=== PATIENT | female | born 1945 | race Caucasian/White ===

== ENCOUNTER → 2017-07-03 | Outpatient (CLI) | payer MEDICARE, OTHER ==
[~2017-07-03] MED LIST: ALPRAZOLAM; AMBIEN 5 MG TABL5 M1; AMBIEN 5 MG TABL5 M1 PO; AMITRIPTYLINE H10 M1 PO; AMITRIPTYLINE H25 M2 PO; APAP500 PO; ATENOLOL 100MG100 MG PO; ATENOLOL 50 MG50 M1 PO; B12INJ; B12INJ SUBQ; BUSPAR 5 MG TABL5 M1 PO; BUSPIRONE HCL10 MG PO; BUTRANS1 EAC1 TD; CALCIUM PO; CIPRO500 MG PO; CYMBALTA20 MG; CYMBALTA60 MG PO; DURAGESIC1 EAC1 INTRADERM; FLEXERIL PO; HYDROCODONE-AP1 EAC6 PO; HYDROCODONE-APA1 TA1 PO; LEVOTHYROXIN0.125 M1 PO; LIORESAL 10 MG10 MG PO; MEDROLDOSEPACK PO; MOBIC15 MG PO; MOBIC7.5 M1 PO; NEURONTIN 300300 M1 PO; NEURONTIN300 MG PO; NEURONTIN600 MG PO; NORCO 10-325 T1 EACH PO; NORCO 5-325 TA1 EACH PO; OXYCODONE-APAP1 EAC6; PERCOCET 10-321 EACH PO; PERCOCET 5-3251 EACH PO; PERCOCET 7.5-31 EACH PO; POTASSIUM20 PO; PROAIR HFA8.5 GM INH; PROZAC20 MG PO; PROZAC40 MG; REMERON 30 MG T30 M1 PO; RESTORIL; RESTORIL15 MG PO; RESTORIL30 MG PO; STOOL SOFTENER1 EACH PO; SYNTHROID PO; TRAMADOL 50 MG50 MG PO; TRANSPORT CHAI1 EACH MC; ULTRA-LIGHT RO1 EACH MC; XANAX 0.25 MG0.25 MG PO; XANAX 0.5 MG0.5 MG PO; ZANAFLEX4 MG PO; ZOLOFT100 MG PO
--- NOTE | 2017-07-08 08:02 | PAINCON ---
[facility] [address] [place] [address] PAIN MANAGEMENT CONSULTATION Name: YOSVANY OSUNA Room: [facility] Ted#: [id number] Admission: 07/03/17 Attend Phys: Brenda Dai Discharge: Date of : 49 Report #: [id number] THIS REPORT FOR: //name// CC: Evangelina Marquez HISTORY OF PRESENT ILLNESS: The patient is a 72-year-old female last seen in pain clinic on 11/21/2016. She returns to pain clinic today. It has been greater than 6 months since her last visit. She has used hydrocodone 5/325 very infrequently. She does continue tizanidine 4 mg 1-2 a day for spasm, Cymbalta 300 mg 1 in the morning and 2 at night. He returns to the pain clinic today noting that she fell 3-1/2 weeks ago and broke her right wrist. She has had 3 falls in 6 months. She states she has no knowledge of falling, states she does not have pain. She does not "trip." Her leg does and "give out." She is unaware of actual falling, though she denies loss of consciousness (? ). Has no postictal period after the fall. This is very concerning for perhaps some cardiac arrhythmia. I can see no other source for these falls. She denies any change in medications or antecedent prodromal type sensations. She does have a new primary physician, Dr. Georges with the partner's in primary care clinic. She notes following her last fall she was seen in the ER. They did put a wrist splint on her, but did not apparently evaluate further the etiology of the falls. She notes she had had hernia surgery in May, is feeling much better overall. Some ongoing back pain that she rates at 7 on a VAS. PHYSICAL EXAMINATION: Shows 5 feet 4 inches, 140 pounds female, BMI is 24 kilograms per meter squared. Blood pressure 120/75, pulse 96, respirations 16, room air saturation 90%. GENERAL: She is alert and oriented to person, place and time, judged to be a reasonable historian. Cervical range of motion is good. Extraocular muscles are intact. There is no nystagmus. Lateral gaze deviation. She is wearing a splint on the right wrist, some subjective pain in the left shoulder, the range of motion is adequate, diffuse tenderness across the lower back. Gait is tandem. Lower extremity strength is preserved. ASSESSMENT: 1. Symptomatic axial back pain. 2. Lumbar radiculopathy by history. 3. Status post multiple falls. Again, 3 falls in the last 6 months. Even prior to that when I saw her greater than 6 months ago, 08:20-20:17, she had had a fall with a fracture of left clavicle and C7-T1 [place] [address] PAIN MANAGEMENT CONSULTATION Name: YOSVANY OSUNA Room: [facility] [place] Jean#: [id number] Admission: 07/03/17 Attend Phys: Brenda Dai Discharge: Date of : 49 Report #: [id number] RECOMMENDATION: 1. Strongly recommend referral to Cardiology for further workup. I will defer to her primary treating physician in this regard. 2. Continue tizanidine 4 mg 1-2 as needed for spasm, limit 60 tablets with 2 refills. 3. Continue gabapentin 300 mg 1 in the morning, 2 at night, 90 tablets with 5 refills. 4. I have taken the liberty of writing for a short course of hydrocodone 5/325 one tablet 3 times a day, limit 45 tablets. Follow up simply as needed basis. She does not warrant daily opiate analgesics. Strongly recommend followup for workup regarding the frequent falls. <ELECTRONICALLY SIGNED> By: Salvador Marquez DO 07/08/17 0802 1435 1743Salvador Marquez DO /nt
== END ==
LOC: M.PC 01:15
DX: M54.16 Radiculopathy, lumbar region (principal); Z91.81 History of falling

== ENCOUNTER 2018-12-26 06:08 | Inpatient (IN) | payer MEDICARE, OTHER ==
[~2018-12-26] VITALS: Ht 162.6 cm; Wt 61.2 kg
[~2018-12-26 06:08] MED LIST changes: +FOSAMAX 70 MG T70 MG PO; +MELATONIN10 M2 PO; +VITAMIN B125000 MCG PO
[2018-12-26 06:49] LABS: HEMATOCRIT 35.1 % (37.0-47.0); HEMOGLOBIN 11.9 gm/dL (12.0-15.0); MCH 31.2 pg (26.0-34.0); MCHC 33.7 g/dL (28.0-37.0); MCV 92.6 fL (80.0-100.0); MPV 8.9 fl. (7.2-11.1); RBC 3.8 mil/uL (4.20-5.00); RDW-CV 14.5 % (10.5-14.5); WBC 3.6 thou/uL (4.0-11.0)
[2018-12-26 07:21] LABS: CALCIUM 8.6 mg/dL (8.5-10.1); CREATININE 0.6 mg/dL (0.6-1.3); POTASSIUM 3.4 mmol/L (3.5-5.1)
[2018-12-26 07:26] LABS: ALBUMIN 3.5 g/dL (3.4-5.0); TOTAL BILIRUBIN 0.3 mg/dL (<0.1-1.0); TOTAL PROTEIN 6.8 g/dL (6.4-8.2)
--- NOTE | 2018-12-26 10:09 | EKG ---
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
[2018-12-26 12:20] VITALS: BP 126/70
[2018-12-26 17:19] VITALS: BP 109/63
--- NOTE | 2018-12-26 18:50 | NUR ---
PATIENT ARRIVED TO UNIT AT 1700. ALERT AND ORIENTED X4. VSS ON 2 LITERS. NO COMPLAINTS OF PAIN, SOA, OR NAUSEA. FLUIDS INFUSED ORDERED. PATIENT COMPLAINING OF ROOM BEING TOO HOT AND UPSET THAT SOMEONE DID NOT COME DOWN IMMEDICATELY TO ADJUST HER THERMASTAT IN THE ROOM. I EXPLAINED TO HER THAT I HAD THE REFRACTORY TECHNICIAN PUT IN THE WORK ORDER FOR MAINTANENCE TO TURN THE AIR DOWN AND I BROUGHT A FAN TO THE PATIENT. FALL PRECAUTIONS IN PLACE. CALL LIGHT WITHIN REACH. HOURLY ROUNDS COMPLETED. WILL CONTINUE TO MONITOR.
[2018-12-26 21:00] VITALS: BP 104/62
[2018-12-27] VITALS: BP 99/66
[2018-12-27 02:04] LABS: HEMATOCRIT 28.6 % (37.0-47.0)
[2018-12-27 02:07] LABS: HEMOGLOBIN 9.7 gm/dL (12.0-15.0)
[2018-12-27 04:00] VITALS: BP 105/59
--- NOTE | 2018-12-27 05:49 | NUR ---
PT ALERT AND ORIENTED. [facility] CATH APPLIED FOR RETENTION. MEDS GIVEN ORDERED. PAIN MANAGED WITH OXY IR. LEG ELEVATED ON PILLOW PER PT REQUEST. DRESSING TO LEFT LEG C/D/I. FLUIDS RUNNING ORDERED. HOURLY ROUNDING COMPLETED. WILL CONTINUE TO MONITOR.
[2018-12-27 08:00] VITALS: BP 120/69
[2018-12-27 10:42] LABS: HEMATOCRIT 30.8 % (37.0-47.0); HEMOGLOBIN 10.4 gm/dL (12.0-15.0); MCH 31.2 pg (26.0-34.0); MCHC 33.6 g/dL (28.0-37.0); MCV 92.9 fL (80.0-100.0); MPV 9.2 fl. (7.2-11.1); RBC 3.32 mil/uL (4.20-5.00); RDW-CV 14.1 % (10.5-14.5)
[2018-12-27 11:02] LABS: CALCIUM 8.5 mg/dL (8.5-10.1); CREATININE 0.7 mg/dL (0.6-1.3); POTASSIUM 3.6 mmol/L (3.5-5.1)
--- NOTE | 2018-12-27 16:20 | NUR ---
MET WITH PT TO DISCUSS HOME SITUATION/DC PLANNING. PT LIVES WITH SPOUSE, PLANS TO RETURN HOME AT DC AND WOULD LIKE HH. COULDN'T REMEMBER NAME OF HH AGENCY SHE'S HAD IN THE PAST. WILL CHECK OLD RECORD. PT STATED THAT SHE HAS A BSC. IS NWB, THERAPY WORKED WITH PT ON A KNEE SCOOTER AND RECOMMENDED PT HAVE ONE. ATTEMPTED TO LOCATE ONE THRU A DME CO TODAY BUT UNABLE TO FIND ONE. THEY ARE AVAILABLE TO RENT BUT THOSE STORES ARE NOT OPEN ON WEEKENDS. WILL NOT BE ABLE TO ARRANGE UNTIL SATURDAY. CM TO FOLLOW
[2018-12-27] MEDS ORDERED: AMBIEN 5 MG TABL5 M1 PO (17:10)
--- NOTE | 2018-12-27 18:10 | NUR ---
ASSUMED CARE OF PATIENT AT APPROX 0730. ALERT AND ORIENTED X4. ASSESSMENT COMPLETED AND CHARTED. VSS ON ROOM AIR. COMPLAINTS OF PAIN MANAGED WITH ORAL AND IV MEDICATIONS. MUSCLE SPASMS ARE CAUSING THE PATIENT THE MOST PAIN AND ATTEMPTED TO MANAGE WITH FLEXERIL WITH LITTLE SUCCESS. PAGED THE [place] DR AND WAITING FOR A CALL BACK. PATIENT HAS BEEN DOING WELL GETTING UP WITH THERAPIES TODAY. BULKY DRESSING TO LEFT LOWER EXTREMITY, PULSES AND CAP REFILL EQUAL ON BILAT LOWER EXTREMITIES. PATIENT HAS FEELING AND CAN WILL TOES ON SURGICAL FOOT. FALL PRECAUTIONS IN PLACE. CALL LIGHT WITHIN REACH. HOURLY ROUNDS COMPLETED. WILL CONTINUE TO MONITOR.
[2018-12-27 20:23] VITALS: BP 141/75
[2018-12-28 04:00] VITALS: BP 104/60
[2018-12-28 04:38] LABS: HEMATOCRIT 27.7 % (37.0-47.0); HEMOGLOBIN 9.5 gm/dL (12.0-15.0)
--- NOTE | 2018-12-28 04:53 | NUR ---
PATIENT HAS REMAINED ALERT AND ORIENTED X 4 THROUGHOUT THE SHIFT AND RESTING AT INTERVALS ON HOURLY ROUNDS. BULKY DRESSING RLE CLEAN AND DRY-ELEVATED ON TWO PILLOWS. SENSATION/CIRCULATION WITHIN NORMAL LIMITS AND ABLE TO WIGGLE TOES. VITAL SIGNS STABLE. INTAKE WITHOUT NAUSEA. ADEQUATE URINE OUTPUT PER [facility] CATHETER. PAIN MANAGEMENT CONTINUES TO BE A CHALLANGE. HAS REPORTED SOME OVERALL IMPROVEMENT. VITAL SIGNS STABLE. CONTINUE TO MONITOR.
[2018-12-28 15:12] VITALS: BP 92/56
--- NOTE | 2018-12-28 19:51 | NUR ---
ASSUMED CARE OF PATIENT AT APPROX 0730. ALERT AND ORIENTED X4. ASSESSMENT COMPLETED AND CHARTED. VSS ON ROOM AIR. PAIN MANAGED WITH ORAL MEDICATIONS. MUSCLE SPASMS ARE UNDER CONTROL AND HER PAIN LEVEL HAS GREATLY DECREASED TODAY. BULKY DRESSING TO LEFT LOWER EXTREMITY; CLEAN, DRY, INTACT. PATIENT UP STAND BY ASSIST, USING KNEE WALKER/SCOOTER. PATIENT UP IN THE CHAIR AND DRESSED TODAY. WORKED WELL WITH THERAPIES AND PROGRESSING TOWARD GOALS. NO OTHER COMPLAINTS THIS SHIFT. HOURLY ROUNDS COMPLETED. CALL LIGHT WITHIN REACH. WILL CONTINUE TO MONITOR.
[2018-12-28 21:16] VITALS: BP 99/63
[2018-12-29 04:00] VITALS: BP 101/55
[2018-12-29 05:00] LABS: URINE BILIRUBIN NEGATIVE (Negative); URINE BLOOD 2+ (Negative); URINE CLARITY CLEAR; URINE COLOR YELLOW; URINE GLUCOSE-RANDOM NEGATIVE (Negative); URINE KETONES NEGATIVE (Negative); URINE LEUKOCYTES-REFLEX 1+ (Negative); URINE NITRITE-REFLEX NEGATIVE (Negative); URINE PROTEIN NEGATIVE (Negative); URINE SPECIFIC GRAVITY 1.025 (1.005-1.030); URINE UROBILINOGEN 0.2 E.U./dl (0.2-1.0)
--- NOTE | 2018-12-29 05:22 | NUR ---
PT SLEPT WELL AFTER RECEIVING SLEEPING MEDS UNTIL ABOUT 0400. SCHEDULED AND PRN PO MEDS GIVEN WITH FAIR RELIEF. UA SENT TO LAB. NO BLOOD DRAW THIS MORNING.RFA SL. ROOM AIR. BULKY KASH WRAP DRSG CDI TO LLE, TOES PINK AND WARM. AOX4, ABLE TO USE CALL LITE AND MAKE NEEDS KNOWN. VSS. HOPEFUL FOR DISCHARGE HOME WITH HOME HEALTH AND SCOOTER WALKER TODAY.
[2018-12-29 05:43] LABS: CASTS None Seen /LPF (None Seen); SQUAMOUS 4-10 Moderate /LPF (0-3)
[2018-12-29 05:44] LABS: URINE RBC 3-10 Few /HPF (0-2)
[2018-12-29 05:45] LABS: CRYSTALS None Seen /LPF (None Seen)
[2018-12-29 08:00] VITALS: BP 90/50
[2018-12-29] MEDS ORDERED: ASA5UEC PO (10:12)
[2018-12-29] MEDS ORDERED: TRAMADOL 50 MG50 MG PO (10:12)
[2018-12-29] MEDS ORDERED: FLOMAX0.4 MG PO ×2 (10:12→13:27)
[2018-12-29] MEDS ORDERED: LIDOPATCH1 EACH TOP (10:12)
[2018-12-29] MEDS ORDERED: OXYCODONE HCL 55 MG PO (10:12)
[2018-12-29] MEDS ORDERED: CYCLOBENZAPRINE10 MG PO (10:12)
[2018-12-29 12:43] VITALS: BP 90/50
--- NOTE | 2018-12-29 13:45 | NUR ---
SPOKE WITH PT.ABOUT KNEE SCOOTERS. MEDICARE DOES NOT COVER KNEE SCOOTERS. GAVE PRICES TO RENT AND OR PURCHASE FROM [facility] [place]. SHE CALLED HER TO DISCUSS. SHE CAME OUT TO NURSES STATION AND SAID BRENDA TOLD HER THAT THEIR NEIGHBOR GAVE THEM ONE THEY HAD. DISCUSSED HH WITH HER. SHE CANNOT REMEMBER NAME OF AGENCY USED IN PAST. GAVE HER A LIST. SHE WILL LOOOK OVER AND MAKE A DECISION. CM WILL CHECK BACK WITH HER SHORTLY.
--- NOTE | 2019-01-02 14:10 | OP ---
[address] [address] OPERATIVE REPORT Name: YOSVANY OSUNA Room: [address] ..#: [id number] Admission: 12/27/18 Attend Phys: Brenda Edwards Discharge: 12/29/18 Date of : 49 Report #: [id number] THIS REPORT FOR: //name// CC: Bethany Garcia DATE OF SERVICE: 12/26/2018 PREOPERATIVE DIAGNOSIS: Left mid foot posttraumatic arthritis. POSTOPERATIVE DIAGNOSIS: Left mid foot posttraumatic arthritis. PROCEDURES: 1. Left foot medial column arthrodesis. 2. Left second transmetatarsal arthrodesis. 3. Left third transmetatarsal arthrodesis. 4. Intraoperative physician-guided fluoroscopy less than 2 hours. SURGEON: Bethany Hayward DO OBGYN SPECIALIST: Jersey Nichols DO ANESTHESIA: General and nerve block by Anesthesia. ESTIMATED BLOOD LOSS: 50 mL. SPECIMENS: None. DRAINS: None. COMPLICATIONS: None. CONDITION: Stable. DISPOSITION: PACU to Med/Surg. ANTIBIOTICS: 2 grams of Ancef IV preoperatively. TOURNIQUET: 140 minutes at 250 mmHg. IMPLANTS: Arthrex medial column arthrodesis plate, nitinol staple x 2, Demineralized Bone Matrix AlloSync. INDICATIONS FOR PROCEDURE: The patient is a very pleasant 73-year-old female, who has had ongoing left foot pain for the last several years. She had [facility] [address] [place] [address] OPERATIVE REPORT Name: YOSVANY OSUNA Room: [address] M.R.#: [id number] Admission: 12/27/18 Attend Phys: Brenda Edwards Discharge: 12/29/18 Date of : 49 Report #: [id number] sustained an injury to her left mid foot approximately 3 years ago. Her x-rays did show evidence of an old Lisfranc type injury with widening at the Lisfranc joint. She had developed significant arthritic change to the first, second and third TMT joints with forefoot abduction. She was having significant pain and debility. She had failed conservative therapies with anti-inflammatories, shoewear modification, activity modification, and injections. Despite these measures, she continues to have significant left foot pain. Therefore, I did recommend a left foot corrective osteotomy with first, second and third TMT joint fusions. The benefits, risks, complications and alternatives to this procedure were discussed with the patient in detail. These include but are not limited to bleeding, surgical site infection, neurovascular compromise, malunion, nonunion, hardware failure, continued pain, need for further surgery, arthritis of the adjacent joints, DVT, PE as well as the inherent risks of anesthesia. The patient understands these risks and is agreeable to proceed. Consent was signed in the preoperative holding area on the chart at the time of surgery. Operative site was marked. DESCRIPTION OF PROCEDURE: The patient was brought to the operating room and placed supine on the operating table. She was administered general anesthetic. A well-padded tourniquet was placed to the proximal portion of the left thigh. Left lower extremity was then sterilely prepped with chlorhexidine scrub, alcohol rinse and ChloraPrep x 2. She was then draped freely in the usual fashion. A timeout was performed confirming correct patient, site, procedure. Surgical site markings were identified and all in the room agreed and procedure began with exsanguination of the left lower extremity and inflation of the tourniquet to 250 mmHg. Next, a standard medial incision was made just medial to the tibialis anterior tendon. This was carried through skin and subcutaneous tissues. Hemostasis was achieved with electrocautery. This was carried to the level of the first TMT joint as well as the navicular cuneiform joint. The first TMT joint was fully exposed with subperiosteal dissection and we dissected over the top with care to protect the neurovascular bundle to the second TMT joint. After full exposure of the first and second TMT joints, we then turned our attention to the lateral aspect. A second incision was made along the medial border of the third metatarsal giving us approximately 4 cm skin bridge. This was carried through the skin and subcutaneous tissues. Hemostasis achieved with electrocautery. Dissection was carried down to the level of the second and third TMT joints. We then connected the two incisions in subperiosteal fashion and we were freely able to localize the first, second and third TMT joints. We freely mobilize the first, second and third TMT joints and at this time, it was noted that we were not getting the adequate correction of the mid foot that was needed. Therefore, the dissection was carried up to the level of the navicular cuneiform joints and the decision was made to place a medial column arthrodesis plate and to primarily use the medial column up to the navicular bone. We prepared all joint surfaces, first TMT, second TMT, the inner cuneiform joints as well as the navicular cuneiform joints by denuding all cartilage that remained. We then exposed the subchondral plate with a [place] [address] OPERATIVE REPORT Name: YOSVANY OSUNA Room: [facility] [facility].#: [id number] Admission: 12/27/18 Attend Phys: Brenda Edwards Discharge: 12/29/18 Date of : 49 Report #: [id number] small K-wire was utilized to fenestrate the joint surfaces and marrow was released. We then performed provisional reduction of the medial column and this was held into place with two large K wires. X-rays confirmed appropriate reduction of the medial column and overall improved foot alignment. An appropriate size plate was chosen and held into place with BB tacks x 2. X-rays confirmed appropriate positioning of the plate. We then drilled, measured and filled the proximal 4 holes in the plate with appropriate length of 3.5 mm nonlocking screws. The first two were placed across the navicular, the second two were placed across the three cuneiform joints. We then placed 2 more locking screws again across the cuneiform and into the second metatarsal. We then secured this distally on the first metatarsal with appropriate length of 3.5 mm cortical locking screws. At this time, we were noted to have appropriate reduction of the medial column. We then manually reduced the 2nd and 3rd tarsometatarsal joints and utilizing the appropriate drill bit. Two nitinol carmen were placed to cross the joint in the appropriate position and malleted into place appropriately, giving us excellent compression across the second and third TMT joints with adequate foot reduction. We then utilized approximately 7 mL of demineralized bone matrix. These were placed into the joint spaces and impacted appropriately. We at this time took some final x-rays. This confirmed appropriate mid foot position as well as hardware placement throughout. We then irrigated the wounds with normal saline. Tourniquet was let down at approximately 140 minutes and hemostasis achieved with electrocautery. We then began closure. The deep tissues were closed with 0 Vicryl suture, subcutaneous tissue closed with 2-0 Vicryl suture and skin reapproximated with 3-0 nylon. The wounds were then dressed with Xeroform, 4 x 4s, ABD, soft roll and a well-padded posterior plaster splint was applied. The patient tolerated the procedure well without complications, was transferred to PACU in stable condition. All needle and sponge counts were correct x 2 and I was present throughout the entirety of the case. <ELECTRONICALLY SIGNED> By: Bethany Hayward DO 01/02/19 1410 1618 1911Angthad Hayward DO /nt
== END 2018-12-29 15:00 | disposition home health service (06) | DRG 504 ==
LOC: M.SUR 06:08 → M.TBA 16:03 → M.ORTHSURG 17:02
PROVIDERS: Internal Medicine; Orthopaedic Surgery; ADMIT Internal Medicine
PROC: 0SGL0KZ Fusion of Left Tarsometatarsal Joint with Nonautologous Tissue Substitute, Open Approach (ICD-10-PCS; principal; 2018-12-26)
PROC: 0SGL04Z Fusion of Left Tarsometatarsal Joint with Internal Fixation Device, Open Approach (ICD-10-PCS; principal; 2018-12-26)
DX: M19.172 Post-traumatic osteoarthritis, left ankle and foot (principal); R71.0 Precipitous drop in hematocrit; E03.9 Hypothyroidism, unspecified; Z96.643 Presence of artificial hip joint, bilateral; Z96.651 Presence of right artificial knee joint; E04.1 Nontoxic single thyroid nodule; R33.9 Retention of urine, unspecified; Z79.899 Other long term (current) drug therapy; Z90.710 Acquired absence of both cervix and uterus; Z98.84 Bariatric surgery status; Z85.3 Personal history of malignant neoplasm of breast; Z92.3 Personal history of irradiation; Z92.21 Personal history of antineoplastic chemotherapy; T14.90XS Injury, unspecified, sequela; W18.39XS Other fall on same level, sequela

== ENCOUNTER → 2019-02-11 | Outpatient (CLI) | payer MEDICARE, OTHER ==
[~2019-02-11] MED LIST changes: +ASA5UEC PO; +CYCLOBENZAPRINE10 MG PO; +FLOMAX0.4 MG PO; +LIDOPATCH1 EACH TOP; +OXYCODONE HCL 55 MG PO
== END ==
LOC: M.WC 09:40
DX: T81.89XA Other complications of procedures, not elsewhere classified, initial encounter (principal); Z96.651 Presence of right artificial knee joint; E03.9 Hypothyroidism, unspecified; Z85.3 Personal history of malignant neoplasm of breast; Z90.710 Acquired absence of both cervix and uterus; Z96.643 Presence of artificial hip joint, bilateral; Y92.89 Other specified places as the place of occurrence of the external cause; Y83.8 Other surgical procedures as the cause of abnormal reaction of the patient, or of later complication, without mention of misadventure at the time of the procedure

== ENCOUNTER → 2019-02-18 | Outpatient (CLI) | payer MEDICARE, OTHER | LOC: M.WC 04:56 | DX: T81.89XD Other complications of procedures, not elsewhere classified, subsequent encounter (principal); E03.9 Hypothyroidism, unspecified; Z96.651 Presence of right artificial knee joint; Z85.3 Personal history of malignant neoplasm of breast; Y83.8 Other surgical procedures as the cause of abnormal reaction of the patient, or of later complication, without mention of misadventure at the time of the procedure ==

== ENCOUNTER → 2019-03-04 | Outpatient (CLI) | payer MEDICARE, OTHER | LOC: M.WC 02-25 08:00 | DX: T81.89XD Other complications of procedures, not elsewhere classified, subsequent encounter (principal); E03.9 Hypothyroidism, unspecified; Z85.3 Personal history of malignant neoplasm of breast; Z96.651 Presence of right artificial knee joint; Y83.8 Other surgical procedures as the cause of abnormal reaction of the patient, or of later complication, without mention of misadventure at the time of the procedure ==

== ENCOUNTER → 2019-12-02 | Outpatient (CLI) | payer MEDICARE, OTHER | LOC: M.CT 10:43 | PROVIDERS: ATTEND Orthopaedic Surgery | DX: Z48.89 Encounter for other specified surgical aftercare (principal); Z98.1 Arthrodesis status ==

== ENCOUNTER → 2020-05-03 | Outpatient (CLI) | payer MEDICARE, OTHER ==
[~2020-05-03] MED LIST changes: +LEVOTHYROXINE175 MC1 PO
== END ==
LOC: M.LAB 08:59
PROVIDERS: ATTEND Orthopaedic Surgery
DX: Z01.812 Encounter for preprocedural laboratory examination (principal); Z20.822 Contact with and (suspected) exposure to COVID-19; M19.072 Primary osteoarthritis, left ankle and foot

== ENCOUNTER 2020-05-06 08:46 | Observation (INO) | payer MEDICARE, OTHER ==
[~2020-05-06] VITALS: Ht 165.1 cm; Wt 70.3 kg
--- NOTE | ~2020-05-06 | H ---
[address] [address] HISTORY AND PHYSICAL Name: YOSVANY OSUNA Room: [address] Joyce MClaytonRClayton#: [id number] Admission: 05/06/20 Attend Phys: Bethany Hayward DO Discharge: 05/07/20 Date of : 49 Report #: [id number] THIS REPORT FOR: cc: Robert Patterson MD, Arthur MD ~ [facility],Medical Records Staff For History and Physical please refer to the handwritten note in the patient's medical record. By: 1314Medical Records Staff [facility] /ALEN
--- NOTE | ~2020-05-06 | OP ---
[facility] [place] [address] OPERATIVE REPORT Name: YOSVANY OSUNA Room: [address] Ted#: [id number] Admission: 05/06/20 Attend Phys: Bethany Hayward DO Discharge: 05/07/20 Date of : 49 Report #: [id number] THIS REPORT FOR: cc: Robert Patterson MD, Arthur MD ~ Bethany Hayward DO DATE OF SERVICE: 05/06/2020 PREOPERATIVE DIAGNOSES: 1. 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 2. Left foot retained painful hardware. POSTOPERATIVE DIAGNOSES: 1. 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 2. Left foot retained painful hardware. SURGEON: Bethany Hayward DO LINING MACHINE OPERATOR: Hector Hoover DO. SECOND MODELING AGENT: Amalia Oliveira DO PROCEDURES: 1. Left talonavicular joint arthrodesis. 2. Left foot, removal of hardware. ANESTHESIA: General and regional nerve block by Anesthesia. ESTIMATED BLOOD LOSS: 50 mL. SPECIMENS: None. DRAINS: None. COMPLICATIONS: None. CONDITION: The patient is stable. DISPOSITION: PACU to Med/Surg. ANTIBIOTICS: Ancef 2 grams IV preoperatively. TOURNIQUET: Approximately 110 minutes at 250 mmHg. [facility] [place] [address] OPERATIVE REPORT Name: YOSVANY OSUNA [address]: [address]#: [id number] Admission: 05/06/20 Attend Phys: Bethanykodak Hayward DO Discharge: 05/07/20 Date of : 49 Report #: [id number] IMPLANTS: Kely 4.0 mm cannulated screws x 4. INDICATIONS FOR PROCEDURE: The patient is a very pleasant 74-year-old female who has had ongoing left foot pain for the last approximately 1 year. She had an old Lisfranc-type injury. She previously underwent medial column arthrodesis and second and third TMT arthrodesis by myself. The foot was teased from the navicular to the first metatarsal. She subsequently continued to have significant pain as well as forefoot abduction. Her pain is mostly located over the medial aspect of the foot and the navicular tuberosity as well as her retained hardware. 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 Given her continued pain as well as CT and x-ray findings, I did recommend left foot revision medial column arthrodesis with possible talonavicular and subtalar fusion with hardware removal. The benefits, risks, complications, alternatives of this procedure were discussed with the patient. We discussed with the patient in detail. These include but are not limited to bleeding, surgical site infection, neurovascular compromise, malunion, nonunion, hardware failure, continued pain, need for further surgery, DVT, PE, as well as the inherent risks of anesthesia. The patient understands these risks and is agreeable to proceed. Consent was signed in the preoperative holding area and on the chart at time of surgery, operative site was marked. DESCRIPTION OF PROCEDURE: The patient was brought to the operating room and placed supine on the operating table. She was administered general anesthetic. A well-padded tourniquet was placed on the proximal to the left thigh. Left lower extremity was then sterilely prepped with ChloraPrep, allowed to dry for 3 minutes. She was then draped freely in the usual fashion. A time-out was performed to confirm correct patient, site and procedure. Surgical site conde were identified, all in agreement. Procedure began with exsanguination of left lower extremity with an Esmarch and inflation of tourniquet to 250 mmHg. Next, the previous incision overlying the medial aspect of her foot was utilized. This carried through skin and subcutaneous tissues. Hemostasis achieved with electrocautery. Dissection was carried down to the level of the plate and screws. These were fully exposed and then removed with the appropriate screwdriver. Upon inspection of the medial column, she was noted to have a full fusion and this segment of bone was noted to be moving all as one. She was noted to have significant forefoot abduction through the talonavicular joint; however, medial capsulotomy was made to the talonavicular joint. The talonavicular joint was exposed. Cartilage was removed from the head of the talus as well as the base of the navicular exposing subchondral bone. We then broke through the subchondral plate utilizing osteotomes and a small K-wire exposing the medullary bone underneath. Once appropriate, joint preparation had taken place. The joint was reduced. 4 K-wires from the 4.0 cannulated screw set were placed across the joint into appropriate position. These were then [address] [address] OPERATIVE REPORT Name: ENRRIQUEYOSVANYNADIRA Room: [address] MARLON JuarezDean#: [id number] Admission: 05/06/20 Attend Phys: Bethany Mainor Discharge: 05/07/20 Date of : 49 Report #: [id number] each measured, overdrilled and 4-4.0 mm cannulated screws were placed across the talonavicular joint. This was noted to reduce her forefoot abduction, and the foot was noted to rest in a neutral plantigrade position at this point. Final x-rays were taken, which confirmed appropriate reduction of the talonavicular joint as well as foot position as well as hardware placement. A 10 mL of Vitoss bone graft was placed across the talonavicular joint prior to hardware being placed in joint reduction. At this time, the wound was irrigated with saline. Deep tissues were closed with 0 Vicryl suture, subcutaneous tissue closed with 2-0 Vicryl suture and skin reapproximated with 3-0 nylon. Wounds were dressed with Xeroform, 4 x 4s, ABD, soft roll and a well-padded posterior plaster splint was applied. The patient tolerated the procedure well without complications, transferred to PACU in stable condition. All needle and sponge counts were correct x 2 and I was present throughout all pertinent decision making aspects of the case. By: 1348 1409Angthad Hayward DO /nt
[2020-05-06 09:27] LABS: HEMATOCRIT 32.8 % (37.0-47.0); HEMOGLOBIN 10.7 gm/dL (12.0-15.0); MCH 27.4 pg (26.0-34.0); MCHC 32.4 g/dL (28.0-37.0); MCV 84.4 fL (80.0-100.0); MPV 8.4 fl. (7.2-11.1); RBC 3.89 mil/uL (4.20-5.00); RDW-CV 15.6 % (10.5-14.5); WBC 4.1 thou/uL (4.0-11.0)
[2020-05-06 09:33] LABS: CALCIUM 8.8 mg/dL (8.5-10.1); CREATININE 0.7 mg/dL (0.6-1.3); POTASSIUM 3.6 mmol/L (3.5-5.1)
--- NOTE | 2020-05-06 13:44 | EKG ---
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
[2020-05-06 16:00] VITALS: BP 91/64
--- NOTE | 2020-05-06 19:01 | NUR ---
PATIENT ARRIVED FROM SURGERY THIS AFTERNOON. PATIENT SETTLED TO ROOM. PATIENT IS ALERT AND ORIENTED. PATIENT HAS DENIED ANY NEED FOR PAIN MEDICATION SINCE ARRIVING TO UNIT. PATIENT IS NWB TO LLE AND UP STAND/PIVOT TO BSC. PATIENT HAS DRESSING TO LEFT FOOT CLEAN AND INTACT. PATIENT HAS GOOD APPETITE. PATIENT DENIES ANY NEEDS AT THIS TIME. CALL LIGHT WITHIN REACH.
[2020-05-06 21:05] VITALS: BP 102/65
[2020-05-07] VITALS: BP 92/51
[2020-05-07 03:56] VITALS: BP 108/63
[2020-05-07 04:05] LABS: HEMATOCRIT 27.7 % (37.0-47.0); HEMOGLOBIN 8.8 gm/dL (12.0-15.0); MCH 27.3 pg (26.0-34.0); MCHC 31.8 g/dL (28.0-37.0); MCV 85.8 fL (80.0-100.0); MPV 8.6 fl. (7.2-11.1); RBC 3.23 mil/uL (4.20-5.00); RDW-CV 15.7 % (10.5-14.5); WBC 6.8 thou/uL (4.0-11.0)
--- NOTE | 2020-05-07 05:11 | NUR ---
PT STILL HAVING PAIN 12/09 THIS AM. SWITCHED BETWEEN DILAUDID AND HYDROCODONE WHEN DUE. ENCOURAGED HYDRATION, URINATING WELL. SHE IS ALERT AND ORIETNED, ROOM AIR. PAIN BEGAN TO WORSEN ABOUT BEDTIME. SHE HAS KEPT LLE ELEVATED AND ICE BAG ON ALL NIGHT. RECEIVED ALL MEDS SCHEDULED.
[2020-05-07 07:45] VITALS: BP 102/58
--- NOTE | 2020-05-07 09:23 | NUR ---
CM SPOKE TO THE PT TO DISCUSS CM ASSESSMENT. PT A&0. PT NORMALLY INDEPENDENT WITH ADL'S AND ACTIVE. PT RESIDES AT HOME WITH SPOUSE. PT USES 0 DME. PT HAS 0 HX OF HH OR SNF. PT MAY NEED DME AT D/C. CM AWAITING PHYSICIAN AND P.T. RECOMMENDATIONS FOR NEEDED DME. CM WILL REMAIN AVAILABLE TO ASSIST AND FOLLOW NEEDED.
--- NOTE | 2020-05-07 14:55 | NUR ---
PC TO DR. S[facility]. GIL TO THE LINE. REQUESTED CALL BACK. NEED DISCHARGE INSTRUCTIONS FILLED OUT BEFORE PT CAN LEAVE. WILL PAGE.
[2020-05-07 14:59] VITALS: BP 108/63
--- NOTE | 2020-05-07 17:05 | NUR ---
PT REMAINS ALERT AND ORIENTED X 4. PT TAKEN OUT VIA WHEELCHAIR BY STAFF. SURGICAL CAST/BANDAAGE IN PLACE ON LEFT FOOT. PT GIVEN MEDS PRIOR TO D/C. PT GIVEN DISCHARGE INSTRUCTIONS AND PRESCRIPTIONS. STATES UNDERSTANDING. IV TAKEN OUT OF LEFT WRIST. GAUZE AND TAPE APPLIED.
[2020-05-07 17:47] VITALS: BP 108/63
== END 2020-05-07 17:52 | disposition home or self-care (01) ==
LOC: M.SUR 08:46 → M.TBA 14:46 → M.2W 15:58
PROVIDERS: ADMIT Orthopaedic Surgery; ATTEND Orthopaedic Surgery
DX: M96.0 Pseudarthrosis after fusion or arthrodesis (principal); Z45.89 Encounter for adjustment and management of other implanted devices; Z79.899 Other long term (current) drug therapy